=== PATIENT | female | born 1980 | race Hispanic/Latino ===

== ENCOUNTER 2022-03-06 12:32 | Emergency (ER) | payer OTHER ==
[~2022-03-06] VITALS: Ht 157.5 cm; Wt 70.3 kg
[2022-03-06 12:34] VITALS: BP 135/83
[2022-03-06 12:56] LABS: HEMATOCRIT 40.7 % (36-48); MEAN CORPUSCULAR HEMOGLOBIN 26.7 pg (27.0-33.0); MEAN CORPUSCULAR HGB CONC 31.7 g/dL (32.0-36.0); MEAN CORPUSCULAR VOLUME 84.1 fL (79-99); PLATELET COUNT (AUTO) 383 K/uL (130-400); RED BLOOD CELL COUNT(AUTO) 4.84 MIL/uL (4.00-5.50); WHITE BLOOD COUNT (AUTO) 7.2 K/uL (4.8-10.8)
[2022-03-06] MEDS ORDERED: PANTOPRAZOLE 40 MG/VIAL IVP ONE (13:00)
[2022-03-06 13:01] LABS: BASOPHILS % (AUTO) 0.6 % (0.0-5.0); EOSINOPHILS % (AUTO) 3.5 % (0.0-8.0); LYMPHOCYTES % (AUTO) 39.9 % (21.0-51.0); MONOCYTES % (AUTO) 8.2 % (3.0-13.0); NEUTROPHILS % (AUTO) 47.5 % (40.0-77.0)
[2022-03-06 13:07] LABS: CREATININE 0.9 mg/dL (0.5-1.5); POTASSIUM 4.3 mmol/L (3.5-5.1)
[2022-03-06 13:11] LABS: BILIRUBIN,TOTAL 0.4 mg/dL (0.2-1.0)
[2022-03-06 14:00] LABS: AMPHET/METH SCREEN,URINE NEGATIVE (NEGATIVE); BARBITURATE SCREEN, URINE NEGATIVE (NEGATIVE); BENZODIAZEPINES SCREEN,URINE NEGATIVE (NEGATIVE); CANNABINOID SCREEN,URINE NEGATIVE (NEGATIVE); COCAINE SCREEN,URINE NEGATIVE (NEGATIVE); OPIATE SCREEN,URINE NEGATIVE (NEGATIVE); PHENCYCLIDINE SCREEN,URINE NEGATIVE (NEGATIVE)
[2022-03-06] MEDS ORDERED: MAG/ALUM/SIMETH 30 ML UDCUP PO ONE (14:00)
[2022-03-06] MEDS ORDERED: DICYCLOMINE HCL 10 MG/5 ML ML PO ONE ×2 (14:00→14:06)
[2022-03-06] MEDS ORDERED: LIDOCAINE HCL 2% VISCOUS 15 ML UDCUP PO ONE (14:00)
[2022-03-06] MEDS ORDERED: MAG/ALUM/SIMETH 30 ML UDCUP ONE (14:06)
[2022-03-06] MEDS ORDERED: LIDOCAINE HCL 2% VISCOUS 15 ML UDCUP ONE (14:06)
[2022-03-06] MEDS ORDERED: PANT40TA PO (14:52)
[2022-03-06] MEDS ORDERED: DICL20GE TP (14:53)
== END 2022-03-06 15:06 | disposition home or self-care (01) ==
LOC: EDH 12:32
DX: S29.012A Strain of muscle and tendon of back wall of thorax, initial encounter (principal); K21.9 Gastro-esophageal reflux disease without esophagitis; X58.XXXA Exposure to other specified factors, initial encounter; Y93.89 Activity, other specified; Y92.89 Other specified places as the place of occurrence of the external cause; Y99.8 Other external cause status
CPT/HCPCS: 36415; 71045; 80053; 80305; 84484; 85025; 93005 ×2; 96374; 99285; C9113

== ENCOUNTER 2022-04-05 19:48 | Emergency (ER) | payer OTHER ==
[~2022-04-05] VITALS: Ht 157.5 cm; Wt 68.0 kg
[~2022-04-05 19:48] MED LIST: DICL20GE TP; PANT40TA PO
[2022-04-05 20:15] LABS: HEMATOCRIT 36.5 % (36-48); MEAN CORPUSCULAR HEMOGLOBIN 26.8 pg (27.0-33.0); MEAN CORPUSCULAR HGB CONC 32.3 g/dL (32.0-36.0); PLATELET COUNT (AUTO) 363 K/uL (130-400); RED CELL DISTRIBUTION WIDTH 13.2 % (11.0-15.5); WHITE BLOOD COUNT (AUTO) 11.7 K/uL (4.8-10.8)
[2022-04-05 20:27] LABS: CREATININE 0.8 mg/dL (0.5-1.5); POTASSIUM 3.5 mmol/L (3.5-5.1)
[2022-04-05 20:38] LABS: ALBUMIN 3.7 g/dL (3.5-5.0); BILIRUBIN,TOTAL 0.3 mg/dL (0.2-1.0); TOTAL PROTEIN, SERUM 7.5 g/dL (6.0-8.3)
[2022-04-05 20:47] LABS: NEUTROPHILS % (AUTO) 61.5 % (40.0-77.0)
[2022-04-05 20:48] LABS: LYMPHOCYTES % (AUTO) 29.1 % (21.0-51.0); MONOCYTES % (AUTO) 6.9 % (3.0-13.0)
[2022-04-05 20:49] LABS: BASOPHILS % (AUTO) 0.5 % (0.0-5.0); EOSINOPHILS % (AUTO) 1.6 % (0.0-8.0)
[2022-04-05 21:36] VITALS: BP 113/72
== END 2022-04-05 22:02 | disposition home or self-care (01) ==
LOC: EDH 19:48
DX: R07.89 Other chest pain (principal); B34.9 Viral infection, unspecified; Z79.899 Other long term (current) drug therapy; Z98.890 Other specified postprocedural states
CPT/HCPCS: 36415; 71045; 80053; 81025; 82550; 84484; 85025; 93005

== ENCOUNTER 2022-06-20 19:43 | Emergency (ER) | payer OTHER ==
[~2022-06-20] VITALS: Ht 157.5 cm; Wt 68.0 kg
[2022-06-20 20:10] LABS: APPEARANCE,URINE CLEAR (CLEAR); BILIRUBIN,URINE NEGATIVE (NEGATIVE); COLOR,URINE YELLOW (YELLOW); GLUCOSE, URINE (UA) NEGATIVE (NEGATIVE); KETONES,URINE NEGATIVE (NEGATIVE); LEUKOCYTE ESTERASE ,URINE NEGATIVE (NEGATIVE); NITRATE,URINE NEGATIVE (NEGATIVE); OCCULT BLOOD,URINE LARGE (NEGATIVE); PH,URINE 7.5 (5.0-8.0); PROTEIN,URINE NEGATIVE (NEGATIVE); UROBILINOGEN,URINE 0.2 mg/dL (0.2-1.0)
[2022-06-20 20:15] LABS: HCG,QUALITATIVE URINE NEGATIVE (NEGATIVE)
[2022-06-20 20:20] LABS: BACTERIA,URINE Rare /HPF (None Seen); SQUAMOUS EPITHELIAL CELL,UR Many /HPF (0-2); WBC,URINE 0-1 /HPF (0-1)
[2022-06-20 20:37] LABS: BASOPHILS % (AUTO) 0.4 % (0.0-5.0); EOSINOPHILS % (AUTO) 2.6 % (0.0-8.0); HEMATOCRIT 32.5 % (36-48); LYMPHOCYTES % (AUTO) 29.5 % (21.0-51.0); MEAN CORPUSCULAR HGB CONC 32.9 g/dL (32.0-36.0); MEAN CORPUSCULAR VOLUME 81.9 fL (79-99); MONOCYTES % (AUTO) 7.6 % (3.0-13.0); NEUTROPHILS % (AUTO) 59.6 % (40.0-77.0); PLATELET COUNT (AUTO) 315 K/uL (130-400); RED BLOOD CELL COUNT(AUTO) 3.97 MIL/uL (4.00-5.50); RED CELL DISTRIBUTION WIDTH 13.9 % (11.0-15.5); WHITE BLOOD COUNT (AUTO) 7.7 K/uL (4.8-10.8)
[2022-06-20 21:09] LABS: CREATININE 0.9 mg/dL (0.5-1.5); POTASSIUM 4.4 mmol/L (3.5-5.1)
[2022-06-20 21:14] LABS: ALBUMIN 3.4 g/dL (3.5-5.0)
[2022-06-20] MEDS ORDERED: OSELTAMIVIR PHOSPHATE 75 MG CAP PO SCH (21:30)
[2022-06-20] MEDS ORDERED: OSEL75 PO (21:39)
[2022-06-20 21:53] VITALS: BP 135/74
== END 2022-06-20 22:06 | disposition home or self-care (01) ==
LOC: EDH 19:43
DX: J10.1 Influenza due to other identified influenza virus with other respiratory manifestations (principal); R07.89 Other chest pain; Z20.822 Contact with and (suspected) exposure to COVID-19; K21.9 Gastro-esophageal reflux disease without esophagitis; Z79.1 Long term (current) use of non-steroidal anti-inflammatories (NSAID)
CPT/HCPCS: 99285; 71045; 87635; 84484; 80053; 85025; 87804 ×2; 81001; 81025; 36415; 93005; C9803

== ENCOUNTER 2023-02-15 20:59 | Emergency (ER) | payer OTHER ==
[~2023-02-15] VITALS: Ht 157.5 cm; Wt 68.5 kg
[~2023-02-15 20:59] MED LIST changes: +OSEL75 PO
[2023-02-15] MEDS ORDERED: 0.9%NACL 1000ML 1,000 ML IV ONE (23:00)
[2023-02-15] MEDS ORDERED: ONDANSETRON 4MG INJ IVP ONE (23:00)
[2023-02-15 23:23] LABS: BASOPHILS % (AUTO) 0.4 % (0.0-5.0); EOSINOPHILS % (AUTO) 2.4 % (0.0-8.0); HEMATOCRIT 35.4 % (36-48); LYMPHOCYTES % (AUTO) 39.1 % (21.0-51.0); MEAN CORPUSCULAR HEMOGLOBIN 25.5 pg (27.0-33.0); MEAN CORPUSCULAR HGB CONC 31.6 g/dL (32.0-36.0); MEAN CORPUSCULAR VOLUME 80.5 fL (79-99); MONOCYTES % (AUTO) 8.5 % (3.0-13.0); NEUTROPHILS % (AUTO) 49.4 % (40.0-77.0); PLATELET COUNT (AUTO) 320 K/uL (130-400); RED CELL DISTRIBUTION WIDTH 15.7 % (11.0-15.5); WHITE BLOOD COUNT (AUTO) 9.1 K/uL (4.8-10.8)
[2023-02-15 23:36] LABS: CREATININE 0.9 mg/dL (0.5-1.5); POTASSIUM 4.3 mmol/L (3.5-5.1)
[2023-02-15 23:40] LABS: ALBUMIN 3.7 g/dL (3.5-5.0); TOTAL PROTEIN, SERUM 7.7 g/dL (6.0-8.3)
[2023-02-15 23:52] LABS: APPEARANCE,URINE CLEAR (CLEAR); BILIRUBIN,URINE NEGATIVE (NEGATIVE); GLUCOSE, URINE (UA) NEGATIVE (NEGATIVE); KETONES,URINE NEGATIVE (NEGATIVE); LEUKOCYTE ESTERASE ,URINE NEGATIVE Leu/uL (NEGATIVE); NITRATE,URINE NEGATIVE (NEGATIVE); OCCULT BLOOD,URINE NEGATIVE (NEGATIVE); PROTEIN,URINE NEGATIVE (NEGATIVE); UROBILINOGEN,URINE 0.2 mg/dL (0.2-1.0)
[2023-02-16 00:08] LABS: COLOR,URINE Light-Yellow (YELLOW); HCG,QUALITATIVE URINE NEGATIVE (NEGATIVE)
[2023-02-16] MEDS ORDERED: LIDOCAINE HCL 2% VISCOUS 15 ML UDCUP ONE (00:13)
[2023-02-16] MEDS ORDERED: MAG/ALUM/SIMETH 30 ML UDCUP ONE (00:13)
[2023-02-16] MEDS ORDERED: DICYCLOMINE HCL 10 MG/5 ML ML PO ONE (00:14)
[2023-02-16] MEDS ORDERED: DICYCLOMINE HCL 10 MG/5 ML ML PO SCH (00:30)
[2023-02-16] MEDS ORDERED: LIDOCAINE HCL 2% VISCOUS 15 ML UDCUP PO ONE (00:30)
[2023-02-16] MEDS ORDERED: MAG/ALUM/SIMETH 30 ML UDCUP PO ONE (00:30)
[2023-02-16] MEDS ORDERED: ONDA-104 PO (01:27)
[2023-02-16] MEDS ORDERED: IBUP-1493 PO (01:27)
[2023-02-16 01:57] VITALS: BP 128/76
== END 2023-02-16 02:14 | disposition home or self-care (01) ==
LOC: EDH 20:59
DX: K80.50 Calculus of bile duct without cholangitis or cholecystitis without obstruction (principal); Z79.899 Other long term (current) drug therapy; Z98.890 Other specified postprocedural states
CPT/HCPCS: 99285; 80053; 83690; 85025; 81003; 81025; 36415; 96374; 76705; 71045; 96361; J7030; J2405